=== PATIENT | female | born 1980 | race Caucasian/White ===

== ENCOUNTER 2017-04-08 11:47 | Emergency (ER) | payer OTHER ==
[~2017-04-08] VITALS: Ht 160 cm; Wt 52.2 kg
[2017-04-08 12:39] LABS: ABSOLUTE NEUTROPHILS 3.3 thou/uL (1.4-8.2); BASOPHILS 0.9 % (0.0-2.0); EOSINOPHILS 0.9 % (0.0-3.0); HEMATOCRIT 43.5 % (37.0-47.0); HEMOGLOBIN 14.3 gm/dL (12.0-15.0); LYMPHOCYTES 36.1 % (24.0-44.0); MCH 30.3 pg (26.0-34.0); MCHC 32.8 g/dL (28.0-37.0); MCV 92.2 fL (80.0-100.0); MONOCYTES 6.1 % (1.0-8.0); PLATELET COUNT 326 thou/uL (150-400); RBC 4.71 mil/uL (4.20-5.00); RDW 14.9 % (10.5-14.5)
[2017-04-08 12:40] LABS: MANUAL DIFF NO
[2017-04-08] MEDS ORDERED: AUGMENTIN 500-1 EACH PO (12:51)
[2017-04-08] MEDS ORDERED: ADDERALL 20 MG20 M1 PO (12:51)
[2017-04-08 13:34] LABS: ALBUMIN 2.3 g/dL (3.4-5.0); CREATININE 0.3 mg/dL (0.6-1.0); TOTAL BILIRUBIN 0.4 mg/dL (<0.1-1.0); TOTAL PROTEIN 5.1 g/dL (6.4-8.2)
[2017-04-08 13:38] LABS: POTASSIUM 3.5 mmol/L (3.5-5.1)
[2017-04-08 13:46] LABS: URINE BILIRUBIN NEGATIVE (Negative); URINE BLOOD NEGATIVE (Negative); URINE COLOR YELLOW; URINE GLUCOSE-RANDOM* NEGATIVE (Negative); URINE KETONES 1+ (Negative); URINE LEUKOCYTES-REFLEX NEGATIVE (Negative); URINE PROTEIN (DIPSTICK) NEGATIVE (Negative); URINE SPECIFIC GRAVITY 1.015 (1.003-1.035); URINE UROBILINOGEN 0.2 E.U./dl (0.2-1.0)
[2017-04-08] MEDS ORDERED: HYDROCODONE-AP1 EAC6 PO (16:19)
[2017-04-08] MEDS ORDERED: IBUPROFEN 600600 M1 PO (16:19)
[2017-04-08 16:37] VITALS: BP 111/62
== END 2017-04-08 16:38 | disposition home or self-care (01) ==
LOC: ER 11:47
PROVIDERS: Emergency Medicine; Physician Assistant
DX: N83.202 Unspecified ovarian cyst, left side (principal); R19.7 Diarrhea, unspecified; F10.99 Alcohol use, unspecified with unspecified alcohol-induced disorder